=== PATIENT | female | born 1970 | race Caucasian/White ===

== ENCOUNTER → 2025-02-13 13:14 | Outpatient (REF) | payer BC, SELFPAY | LOC: PAVMRI 13:14 | PROVIDERS: ATTENDING PHYSICIAN Anesthesiology; FAMILY PHYSICIAN Family Medicine | DX: M54.16 Radiculopathy, lumbar region (principal) | CPT/HCPCS: 72148 ==

== ENCOUNTER 2025-05-11 06:36 | Day surgery (SDC) | payer MEDICARE, BC, SELFPAY ==
[2025-05-03 14:30] VITALS: BMI 26.2
[2025-05-03 15:03] LABS: Hematocrit 37.0 % (37.0-47.0); Hemoglobin 12.9 g/dL (12.0-16.0); Mean Corp Hgb Conc. 34.9 g/dL (33.0-37.0); Mean Corpuscular Volume 85.3 fL (81.0-99.0); Platelet Count 319 10^3/uL (130-400); Red Cell Dist. Width 12.1 % (11.5-14.5)
[2025-05-03 15:33] LABS: ALT (SGPT) 18 U/L (0-35); AST (SGOT) 18 U/L (14-36); Albumin 4.1 g/dl (3.5-5.0); Alkaline Phosphatase 80 U/L (38-126); Blood Urea Nitrogen 16 mg/dl (7-17); Calcium 9.3 mg/dl (8.4-10.2); Carbon Dioxide 31 mmol/L (22-30); Chloride 102 mmol/L (98-107); Estimated Creatinine Clearance 78 ml/min; Glucose 80 mg/dl (70-99); Potassium 4.0 mmol/L (3.5-5.1); Sodium 137 mmol/L (135-145); Total Protein 6.8 g/dl (6.3-8.2); eGFR > 60.00
[2025-05-06 11:04] VITALS: BMI 26.2
[2025-05-11] VITALS (17 sets, daily range): BP systolic 97–162; BP diastolic 50–119
[2025-05-11] MEDS: LYRICA 150 MG PO (11:42)
[2025-05-11] MEDS: CELEBREX 200 MG PO (11:42)
[2025-05-11] MEDS: METHOCARBAMOL 1500 MG PO (11:43)
[2025-05-11] MEDS: TYLENOL 1000 MG PO ×3 (11:43→23:33)
[2025-05-11] MEDS: NORMOSOL-R/PLASMALYTE-A 1000 IV ×2 (11:45→19:38)
--- NOTE | 2025-05-11 12:29 | W.PN.UPDATE ---
Update Note
Progress Note Update
Lumbar stenosis with neurogenic claudication s/p R L4-L5 hemilami and PSF w/ Dr Cronin 05/11/25
- s/p lami, 2009, L5-S1 fusion, 2011, and previous spinal stimulator w/ subsequent removal
- Will need to wear back brace
DVT prophylaxis - b/l SCDs/TEDS
Chronic pain syndrome w/ opioid dependence - continue Xtampza ER
- Increase Oxycodone 10 mg q8hprn to 10-15 mg q4hprn for mod-severe breakthru pain
- Continue Lyrica
- No NSAIDs. Will replace w/ IV Decadron for inflammation during admission
- Monitor pain and adjust meds prn
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 Was prescribed by Zhanna Pool of [facility]. 70 tabs for 7 day supply.
Nephrolithiasis, non-obstructive
Renal cyst
Anxiety
Depression
Insomnia
[2025-05-11] MEDS: DILAUDID 0.5 MG IV ×3 (16:20→17:59)
[2025-05-11] MEDS: ZOFRAN 4 MG IV (16:37)
[2025-05-11] MEDS: OXYCONTIN (CONTROLLED RELEASE) 40 MG PO (19:28)
[2025-05-11] MEDS: SENOKOT 17.2 MG PO (19:40)
[2025-05-11] MEDS: COLACE 100 MG PO (19:40)
[2025-05-11] MEDS: ANCEF 5 IV (19:40)
[2025-05-11] MEDS: DECADRON 4 MG IV (19:42)
[2025-05-11] MEDS: WELLBUTRIN XL (24 hour extended release) 300 MG PO (21:05)
[2025-05-11] MEDS: ZOLOFT 200 MG PO (21:05)
[2025-05-11] MEDS: AMBIEN 10 MG PO (21:05)
[2025-05-11] MEDS: ROXICODONE 15 MG PO (21:05)
[2025-05-11] MEDS: PEPCID 20 MG PO (21:05)
--- NOTE | 2025-05-11 22:48 | PTCARENOTE ---
Pt arrived to [facility] @ 1851. Pt AAOx3, vss. Pt anxious and tearful. Admission assessment completed. IVF initiated per order. Pain medication given per order, see MAR. Pt oriented to room, call schuster within reach, bed locked and in lowest position.
Plan of care reviewed with pt and all questions answered. Care ongoing.
[2025-05-11] MEDS: LYRICA PO (23:27)
[2025-05-11] MEDS: TYLENOL PO (23:27)
[2025-05-11] MEDS: LYRICA 50 MG PO (23:33)
[2025-05-12] MEDS: ROXICODONE 15 MG PO ×2 (02:51→11:43)
[2025-05-12 03:05] VITALS: BP 132/74
[2025-05-12] MEDS: ANCEF 5 IV (04:05)
[2025-05-12] MEDS: TYLENOL 1000 MG PO ×2 (05:00→11:43)
[2025-05-12] MEDS: NORMOSOL-R/PLASMALYTE-A 1000 IV (05:20)
[2025-05-12 05:41] VITALS: BP 124/79
[2025-05-12] MEDS: DILAUDID 0.5 MG IV (05:43)
[2025-05-12 07:23] LABS: Hematocrit 31.8 % (37.0-47.0); Hemoglobin 11.3 g/dL (12.0-16.0)
[2025-05-12] MEDS: DECADRON 4 MG IV (07:56)
[2025-05-12] MEDS: OXYCONTIN (CONTROLLED RELEASE) 40 MG PO (07:56)
[2025-05-12] MEDS: SENOKOT 17.2 MG PO (07:56)
[2025-05-12] MEDS: LYRICA 50 MG PO (07:56)
[2025-05-12] MEDS: COLACE 100 MG PO (07:56)
[2025-05-12 07:57] LABS: Blood Urea Nitrogen 9 mg/dl (7-17); Calcium 8.6 mg/dl (8.4-10.2); Carbon Dioxide 28 mmol/L (22-30); Chloride 107 mmol/L (98-107); Estimated Creatinine Clearance 104 ml/min; Glucose 99 mg/dl (70-99); Potassium 3.0 mmol/L (3.5-5.1); Sodium 138 mmol/L (135-145); eGFR > 60.00
--- NOTE | 2025-05-12 08:09 | W.DS.TRANS ---
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
-
Discharge Instructions:
Sleep Apnea Risk Low
Discharge Diagnosis/Procedures Lumbar stenosis w/ neurogenic claudication s/p R
L4-L5 hemilaminectomy and posterior spinal
fusion w/ Dr Cronin 05/11/25
Diet Regular
Additional Diets Adequate hydration and minimize opioids as able
to prevent low blood pressure/dizziness.
Activity As tolerated
Additional Activity No heavy lifting >10 lbs.
Driving Restrictions Not until seen by your Dr
Bathing Restrictions OK to shower in 4 days
Instructions:
Stand-Alone Forms: [facility] Lumbar D/C Inst.
Changes to Home Medications: No
Discharge Medications:
DC Medications w/original date entered in [employer]
sertraline 100 mg tablet (Zoloft) 200 mg PO HS Depression 09/26/20
bupropion HCl 300 mg 24 hr tablet, extended release (Wellbutrin XL) 300 mg PO HS 05/04/25
oxycodone 10 mg tablet 10 mg PO Q8H PRN pain 05/04/25
oxycodone myristate 36 mg capsule sprinkle extended release 12hr(DON'T CRUSH) (Xtampza ER) 36 mg PO Q12H 05/04/25
pregabalin 50 mg capsule 50 mg PO Q8H 05/04/25
zolpidem 10 mg tablet 10 mg PO HS 05/04/25
ibuprofen 400 mg tablet 400 mg PO Q6H PRN back pain 05/11/25
Home Medication Changes
Pending Results: No
--- NOTE | 2025-05-12 08:09 | W.PN.SP ---
Today's Communication / Plan
-
s/p lami fusion
PT
D/C
Has pain meds per PAin doc
Subjective / Objective
Subjective Data
Pt leg better
Back pain
Chronic pain pt. Dr. Garcia gave more meds
Objective Data
Vital Signs
Temp Pulse Resp BP Pulse Ox
98.0 F 80 16 124/79 96
05/12/25 05:41 05/12/25 05:41 05/12/25 05:41 05/12/25 05:41 05/12/25 05:41
Intake and Output
05/11/25 05/12/25 05/13/25
06:59 06:59 06:59
Intake Total 2660 / 2660
Output Total 450 / 450
Balance 2210 / 2210
Intake:
Oral fluids 960 / 960
IV fluids (Total) 1700 / 1700
normosol 600 / 600
Output:
Urine, Voided 450 / 450
Other:
Number of approximated MODERATE 1
amounts of urine
Number of approximated LARGE 1
amounts of urine
Lab Data
05/12/25 06:55
05/12/25 06:55
Physical Exam
-
Moving all LE good strength
[2025-05-12 08:13] VITALS: BP 130/86
--- NOTE | 2025-05-12 08:54 | W.PN.ORTHO ---
Today's Communication / Plan
-
d/c
Assessment
.
Distal Motor Intact: Yes
Dressing:
Clean, dry and intact.
Assessment:
Opioid tolerant/chronic pain-adjust meds inpatient and to follow w/pain specialist
Hypokalemia-replete
Plan
.
Surgery / Date: L4-[address]ra-[address] Cronin 05/11/25
Activity:
Out of bed.
PT/OT
Discharge Plan: Home
Subjective
.
.:
Pain
Vital Signs and Labs
.
Vital Signs and Labs:
Lab Results
05/12/25 06:55
05/12/25 06:55
Temp Pulse Resp BP Pulse Ox
98.2 F 75 18 130/86 99
05/12/25 08:13 05/12/25 08:13 05/12/25 08:13 05/12/25 08:13 05/12/25 08:13
Physical Exam
-
HEENT: No pallor, cyanosis, or jaundice. Throat clear.
NECK: Supple. No JVD.
RESPIRATORY: Lungs clear to auscultation.
CVS: S1, S2 normal. RRR.� No murmur, rub or gallop.
ABDOMEN: Soft, non-tender. No distension. BS+/normal.
EXTREMITIES: strength equal, no calf pain with palpation
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 No focal deficits. roentgenologist grossly intact
--- NOTE | 2025-05-12 08:58 | CM ---
Patient was admitted for spine surgery, patient reports she lives with her spouse and 2 kids, in a one story home with 3 steps to enter, patient is independent with adl's and ambulation, patient drives, patient has a cane and walker in home.
PCP: Magdalena Valdez
Pharmacy: [facility] in [place]
Plan; Home with spouse patient has declined the need for visiting nurses at discharge.
[2025-05-12] MEDS: KCL 40 MEQ PO (09:14)
[2025-05-12] MEDS: ATIVAN 1 MG IV (09:18)
[2025-05-12] MEDS: NSS (PRESERVATIVE FREE) 0.5 ML IV (09:19)
--- NOTE | 2025-05-12 09:20 | W.DS.TRANS ---
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
-
Discharge Instructions:
Sleep Apnea Risk Low
Discharge Diagnosis/Procedures Lumbar stenosis w/ neurogenic claudication s/p R
L4-L5 hemilaminectomy and posterior spinal
fusion w/ Dr Cronin 05/11/25
Diet Regular
Additional Diets Adequate hydration and minimize opioids as able
to prevent low blood pressure/dizziness.
Activity As tolerated
Additional Activity No heavy lifting >10 lbs.
Driving Restrictions Not until seen by your Dr
Bathing Restrictions OK to shower in 4 days
Instructions:
Stand-Alone Forms: [facility] Lumbar D/C Inst.
Changes to Home Medications: Yes
Discharge Medications:
DC Medications w/original date entered in [employer]
sertraline 100 mg tablet (Zoloft) 200 mg PO HS Depression 09/26/20
bupropion HCl 300 mg 24 hr tablet, extended release (Wellbutrin XL) 300 mg PO HS 05/04/25
oxycodone myristate 36 mg capsule sprinkle extended release 12hr(DON'T CRUSH) (Xtampza ER) 36 mg PO Q12H 05/04/25
zolpidem 10 mg tablet 10 mg PO HS 05/04/25
Saccharomyces boulardii 250 mg capsule (Florastor) 250 mg PO BID #1 cap 05/12/25
cephalexin 500 mg capsule 500 mg PO QID infection prevention #20 caps 05/12/25
dexamethasone 4 mg tablet 4 mg PO BID inflammation #6 tabs 05/12/25
docusate sodium 100 mg capsule (Colace) 100 mg PO BID stool softner #1 cap 05/12/25
magnesium hydroxide 400 mg/5 mL oral suspension (Milk of Magnesia) 30 ml PO HS PRN constipation #1 mL 05/12/25
naloxone 4 mg/actuation nasal spray (Narcan) 4 mg intranasal Q2M PRN opioid overdose #1 ea 05/12/25
oxycodone 10 mg tablet 10 mg PO Q4H PRN pain #0 tabs 05/12/25
pregabalin 50 mg capsule 100 mg (2 x 50 mg) PO BID #0 caps 05/12/25
sennosides 8.6 mg tablet (Senokot) 17.2 mg (2 x 8.6 mg) PO BID laxative #2 tabs 05/12/25
Home Medication Changes
Saccharomyces boulardii 250 mg capsule (Florastor) 250 mg PO BID #1 cap 05/12/25
cephalexin 500 mg capsule 500 mg PO QID infection prevention #20 caps 05/12/25
dexamethasone 4 mg tablet 4 mg PO BID inflammation #6 tabs 05/12/25
docusate sodium 100 mg capsule (Colace) 100 mg PO BID stool softner #1 cap 05/12/25
magnesium hydroxide 400 mg/5 mL oral suspension (Milk of Magnesia) 30 ml PO HS PRN constipation #1 mL 05/12/25
naloxone 4 mg/actuation nasal spray (Narcan) 4 mg intranasal Q2M PRN opioid overdose #1 ea 05/12/25
oxycodone 10 mg tablet 10 mg PO Q4H PRN pain #0 tabs 05/12/25
pregabalin 50 mg capsule 100 mg (2 x 50 mg) PO BID #0 caps 05/12/25
sennosides 8.6 mg tablet (Senokot) 17.2 mg (2 x 8.6 mg) PO BID laxative #2 tabs 05/12/25
Pending Results: No
[2025-05-12 11:38] VITALS: BP 110/66
[2025-05-12 11:58] VITALS: BP 125/71
== END 2025-05-12 12:31 | disposition home or self-care (01) ==
LOC: SDS 06:36
PROVIDERS: Physician Assistant; ATTENDING PHYSICIAN Orthopaedic Surgery Orthopaedic Surgery of the Spine; FAMILY PHYSICIAN Family Medicine
DX: M48.062 Spinal stenosis, lumbar region with neurogenic claudication (principal); M41.9 Scoliosis, unspecified; Z98.890 Other specified postprocedural states
CPT/HCPCS: 63047; 22612; 22842; C1776; 36415; 72100; 76000; 80048; 80053; 85014; 85018; 85027; 87070; 93005; 97162; 97167

== ENCOUNTER 2025-05-14 09:09 | Emergency (ER) | payer BC, SELFPAY ==
[2025-05-14 10:03] VITALS: BMI 26.3
[2025-05-14] MEDS: DILAUDID 1 MG IV (10:10)
[2025-05-14] MEDS: ZOFRAN 4 MG IV (10:11)
--- NOTE | 2025-05-14 10:29 | ED.GENMED ---
History of Present Illness
General
Chief Complaint: Post Operative Problem(s)
Source: patient, records, previous radiology exam and previous hospital records
Exam Limitations: none
Time Seen by Provider: 05/14/25 09:24
History of Present Illness
History of Present Illness:
55-year-old female chronic pain syndrome multiple back surgeries recently underwent spinal surgery from Dr. Cronin woke with decrease of the right sided pain from her buttock to her leg meds were adjusted was discharged to home, according to her
sisters trouble managing her pain at home usually takes Oxy Contin 10 3 times daily last night woke up shaking and pain with urinary incontinence, could not make it to the bathroom, here she has low-grade fever wound without any obvious drainage no
cough she did get a flu shot
Past History
Past History
ED Past Medical History: None
ED Past Surgical History: and Orthopedic
Social History
Tobacco: Non-smoker
Alcohol: None
Drug: None
Personal:
Living: with family
Phy Exam
Physical Exam
Physical Exam:
Physical Exam
General: 55 female looks uncomfortable nontoxic
Neck: Lips are moist
Heart: s1/s2 regular rate and rhythm, no murmur. equal radial pulses.
Lungs: no acute respiratory distress. Faint crackles at the bases
Abdomen: Soft nontender
Neuro: alert and oriented equal strong strength in all 4
Skin: 3 vertical surgical wounds clean dry and intact with no drainage
Psychiatric: Cooperative
Extremities: no edema.
Course
Orders/Labs/Results
Orders:
Orders
05/14/25 09:53
Rectal Temp- Treatment ONCE
HYDROmorphone [Dilaudid] 1 mg IV NOW STA
Ondansetron Injectable [Zofran] 4 mg IV NOW STA
05/14/25 09:55
Bladder Scan- Treatment ONCE
05/14/25 10:09
Complete Blood Count/With Diff Urgent
Comprehensive Metabolic Panel Urgent
05/14/25 10:16
CR Chest Portable - 1 View Urgent
Comment:
Reason For Exam: fever
Reason Study Needs to be Portable: Patient Unstable
05/14/25 10:25
Blood Culture Q30M
CHANTELLE Source: Blood/Venous
Specimen Description:
Influenza A+B Rapid Molecular Urgent
CHANTELLE Source: Nasal Swab
Specimen Description:
05/14/25 10:30
Blood Culture Q30M
CHANTELLE Source: Blood/Venous
Specimen Description:
05/14/25 10:48
Physical Therapy Consult [Pt Eval And Treat] Urgent
Activity Level: Ambulate
05/14/25 12:09
Urinalysis Reflex To Culture Urgent
Date Specimen was Collected: 05/14/25
Time Specimen was Collected: 12:06
Urine Microscopic Reflex Cult Urgent
Urine Culture Urgent
CHANTELLE Source: U
Specimen Description:
Obtained by: Random
Date Specimen was Collected: 05/14/25
Time Specimen was Collected: 12:06
05/14/25 12:51
Oxycodone [Roxicodone] 15 mg PO NOW STA
05/14/25 12:53
Case Management Consult ONCE
Case Management Consult: VN/Home Care
05/14/25 12:57
Acetaminophen [Tylenol] 1,000 mg PO NOW STA
Abnormal Lab Results
05/14/25 05/14/25
10:09 12:09
WBC 12.9 H 10^3/uL
(4.8-10.8)
RBC 3.76 L 10^6/uL
(4.20-5.40)
Hgb 11.1 L g/dL
(12.0-16.0)
Hct 31.3 L %
(37.0-47.0)
Abs Immat Gran (auto) 0.1 H 10^3/uL
(0-0.05)
Absolute Neuts (auto) 10.1 H 10^3/uL
(1.4-6.5)
Absolute Monos (auto) 1.0 H 10^3/uL
(0.1-0.6)
Neutrophils % 78.9 H %
(42.2-75.2)
Lymphocytes % 10.1 L %
(20.5-51.1)
Potassium 3.4 L mmol/L
(3.5-5.1)
Glucose 119 H mg/dl
(70-99)
Leukocyte Esterase Rfl 1+ A
(Negative)
Urine RBC 3-6 A /HPF
(0-2)
Urine Bacteria (Reflex) Few A
(Negative)
05/14/25 10:09
05/14/25 10:09
Vital Signs
Initial and Last Documented VS:
Initial Vital Signs
Temp Pulse Resp Pulse Ox
98.2 F 108 16 97
05/14/25 09:18 05/14/25 09:18 05/14/25 09:18 05/14/25 09:18
Last Documented Vital Signs
Temp Pulse Resp Pulse Ox
100.9 F H 100 15 99
05/14/25 10:02 05/14/25 10:37 05/14/25 10:30 05/14/25 10:37
*Pulse Oximetry
SaO2: 97
Oxygen Mode of Delivery: Room air
Patient hypoxic: no
*Critical Care Note
Total Time (30-74mins, 75-104mins- exclusive of procedures): Not Applicable
Update Note
Update Note:
1 PM update labs noted viral swab no urine or chest x-ray noted patient was seen by her treating surgeon's thought is that her fever is not related to her wound and her symptoms prior related to pain I concur, apparently suffers with chronic pain,
she was to ambulate with PT, she feeling better after IV meds, she takes Oxy Contin 10 3 times daily will increase her short-term to 15 3 times daily, also tried to set her up with home PT, she will follow-up with her surgeon and her pain management
doctor
ED Attending Note
-
Portions of this chart may have been created with voice recognition software.� Occasional wrong word or��sound alike� substitutions may have occurred due to the inherent limitations of voice recognition software.
Discharge Plan
Departure
Patient Disposition: Home (Routine Discharge)
Date of Disposition: 05/14/25
Time of Disposition: 13:04
Patient with high blood pressure during this ER visit?: No
Condition: Good
Discharge Problem:
Back pain
Instructions: Postoperative Pain (DC)
Prescriptions:
New
oxycodone 15 mg tablet
15 mg PO TID PRN (Reason: Pain) Qty: 14 0RF
No Action
sertraline [Zoloft] 100 MG tablet
200 mg PO HS
zolpidem 10 mg Tablet
10 mg PO HS
bupropion HCl [Wellbutrin XL] 300 mg Tablet Extended Release 24 Hr
300 mg PO HS
Xtampza ER 36 mg Cap,Sprinkl,Er12hr(Dont Crush)
36 mg PO Q12H
docusate sodium [Colace] 100 mg capsule
100 mg PO BID Qty: 1 0RF
dexamethasone 4 mg tablet
4 mg PO BID Qty: 6 0RF
Rx Instructions:
take with food
post-op use only
Saccharomyces boulardii [Florastor] 250 mg capsule
250 mg PO BID Qty: 1 0RF
sennosides [Senokot] 8.6 mg tablet
17.2 mg PO BID Qty: 2 0RF
magnesium hydroxide [Milk of Magnesia] 400 mg/5 mL suspension
30 ml PO HS PRN (Reason: constipation) Qty: 1 0RF
Rx Instructions:
CONTINUE colace W/senokot-if no bowel movement 1 day POST-OP -add milk of mag
naloxone [Narcan] 4 mg/actuation spray,non-aerosol
4 mg intranasal Q2M PRN (Reason: opioid overdose) Qty: 1 0RF
pregabalin 50 mg Capsule
100 mg PO BID Qty: 0 0RF
oxycodone 10 mg Tablet
10 mg PO Q4H PRN (Reason: pain) Qty: 0 0RF
cephalexin 500 mg capsule
500 mg PO QID Qty: 20 0RF
Referrals:
Yash Cronin MD [Family Provider, Orthopedics]
Interventions
Interventions:
*Risk Screen - Suicide Last Done: 05/14/25 09:18
*General Assessment Last Done: 05/14/25 09:18
*Neglect/Abuse Screening Last Done: 05/14/25 09:18
[facility] Risk Assessment Tool Last Done: 05/14/25 10:38
Discharge Date and Time
Print Language: SETSWANA
[2025-05-14 10:34] LABS: Hematocrit 31.3 % (37.0-47.0); Hemoglobin 11.1 g/dL (12.0-16.0); Mean Corp Hgb Conc. 35.5 g/dL (33.0-37.0); Mean Corpuscular Volume 83.2 fL (81.0-99.0); Nucleated Red Blood Cells % 0 %; Platelet Count 271 10^3/uL (130-400); Red Cell Dist. Width 11.9 % (11.5-14.5)
[2025-05-14 10:38] VITALS: BP 140/79
[2025-05-14 10:47] LABS: ALT (SGPT) 16 U/L (0-35); AST (SGOT) 22 U/L (14-36); Albumin 3.5 g/dl (3.5-5.0); Alkaline Phosphatase 81 U/L (38-126); Blood Urea Nitrogen 9 mg/dl (7-17); Calcium 8.9 mg/dl (8.4-10.2); Carbon Dioxide 28 mmol/L (22-30); Chloride 104 mmol/L (98-107); Estimated Creatinine Clearance 104 ml/min; Glucose 119 mg/dl (70-99); Potassium 3.4 mmol/L (3.5-5.1); Sodium 137 mmol/L (135-145); Total Protein 6.3 g/dl (6.3-8.2); eGFR > 60.00
[2025-05-14 12:18] LABS: Urine Character Clear (Clear)
[2025-05-14 12:57] LABS: Urine Urothelial Cell 0-2 /LPF (FEW)
[2025-05-14] MEDS: ROXICODONE 15 MG PO (13:01)
[2025-05-14] MEDS: TYLENOL 1000 MG PO (13:03)
--- NOTE | 2025-05-14 13:19 | EDCM ---
Received consult, reviewed chart and met with pt bedside in ED.
Pt has L4-5 hemilaminectomy posterior fusion on 05/11, initially declined VN but is agreeable now. Agreeable to referral to [facility], referral placed in Care Port for SN/PT/OT.
Pt's family will drive her home from ED.
No other CM needs at this time.
[2025-05-14 14:02] VITALS: BP 128/58
== END 2025-05-14 14:45 | disposition home or self-care (01) ==
LOC: EMR 09:09
PROVIDERS: EMERGENCY PHYSICIAN Emergency Medicine; FAMILY PHYSICIAN Orthopaedic Surgery Orthopaedic Surgery of the Spine
DX: M54.9 Dorsalgia, unspecified (principal); G89.4 Chronic pain syndrome; Z98.890 Other specified postprocedural states
CPT/HCPCS: 99284; 96374; 96375; 71045; 80053; 81003; 81015; 85025; 87040; 87086; 87502